=== PATIENT | male | born 1960 | race African-American/Black ===

== ENCOUNTER 2016-09-04 12:29 | Emergency (ER) | payer OTHER ==
[~2016-09-04] VITALS: Ht 167.6 cm; Wt 104.3 kg
--- NOTE | 2016-09-04 13:45 | ED CARDIAC/CP/PALPITATIONS ---
History of Present Illness General Chief Complaint: Chest Pain Stated Complaint: C/P Source: patient, family Exam Limitations: no limitations Vital Signs & Intake/Output Vital Signs & Intake/Output Vital Signs Date Time Temp Pulse Resp B/P Pulse O2 O2 Flow FiO2 Ox Delivery Rate 09/04 1432 96.8 74 18 150/73 96 Room Air 09/04 1241 98.5 68 20 181/83 97 Room Air Allergies Coded Allergies: No Known Allergies (09/04/16) Triage Note: TRIAGE: PT TO ER C/C RUQ ABD PAIN. ONSET 10 AM WHILE SHAVING. STATES PAIN STARTED IN HIS BACK AND WENT THROUGH TO RUQ ABD/CHEST AREA. STATES FELT A SPASM IN HIS BACK FOLLOWED BY SHARP PAIN TO RUQ ABD AND CHEST AREA. PAIN AT WORST WAS 8/10 AND CURRENTLY RATES 1/10. -N/V, -DIAPHORESIS. STATES FELT "A LITTLE MORE WINDED WHEN I WENT DOWN TO GET THE PAPER BEFORE COMING HERE" WHEN ASKED IF HE FELT SOB. HAD EKG DONE IN [place] PRIOR TO TRIAGE. Triage Nurses Notes Reviewed? yes HPI: 56-year-old male with hypertension and high cholesterol history. Complains of right sided mid back pain that started suddenly this morning while he was shaving around 10 AM. Pain is sharp and severe, 8 out of 10, sudden onset mid back right side that radiated to the right upper quadrant and right-sided lower chest region. It radiated straight through, from his back to the right upper quadrant region. He has no history of same. He denied any shortness of breath, nausea, vomiting, diaphoresis, neck pain, jaw pain, arm pain. He has no fever or flulike illness. He has no treatment so far. He states his pain lasted around 10 minutes and he had a hard time straightening up secondary to the pain. Now he describes symptoms as a 1 out of 10 in the same area. He has history of hypertension however he has been off his high blood pressure medication because of urticaria and his doctors trying to figure out what is causing his urticaria so his doctor has taken him off all medication. Past History Travel History Traveled to [place] past 21 day No Medical History Any Pertinent Medical History? see below for history Neurological: NONE EENT: NONE Cardiovascular: hypertension, hyperlipidemia Respiratory: NONE Gastrointestinal: NONE Hepatic: NONE Renal: NONE Musculoskeletal: NONE Psychiatric: NONE Endocrine: NONE Blood Disorders: NONE Cancer(s): NONE [employer]AL CUTTING MACHINE OPERATOR/Reproductive: NONE Other Medical Hx: urticaria Surgical History Surgical History: none Psychosocial History What is your primary language Albanian Tobacco Use: Quit >30 days ago (smoked in high school) ETOH Use: occasional use Illicit Drug Use: denies illicit drug use Family History Hx Contributory? No (no cad, pe/dvt) Review of Systems Review of Systems Constitutional: Reports: see HPI. EENTM: Reports: no symptoms. Respiratory: Reports: no symptoms. Cardiovascular: Reports: see HPI. GI: Reports: see HPI. Genitourinary: Reports: no symptoms. Musculoskeletal: Reports: no symptoms. Skin: Reports: no symptoms. Neurological/Psychological: Reports: no symptoms. Hematologic/Endocrine: Reports: no symptoms. Immunologic/Allergic: Reports: no symptoms. All Other Systems: Reviewed and Negative Physical Exam Physical Exam Cardiovascular: regular rate/rhythm Comments: Well-developed well-nourished person in no acute distress HEENT: Normal EENT exam, extraocular motion intact, no nystagmus. Pupils equally round and reactive to light. Nose is atraumatic. External auditory canal and Tympanic membranes clear. Pharynx normal. No swelling or edema. Neck: Supple, no lymphadenopathy, normal range of motion without pain or tenderness Back: Nontender, no CVA tenderness. Full range of motion Cardiovascular: Regular rate and rhythms no murmurs, normal JVP Respiratory: Chest nontender. No respiratory distress. Breath sounds clear to auscultation bilaterally Abdomen: Soft, nontender nondistended, no appreciable organomegaly. Normal bowel sounds. No ascites Extremity: No edema, no calf tenderness to palpation, normal and equal pulses. Neuro: Alert oriented x3, motor sensory normal, cranial nerves II through XII grossly intact. Skin: No appreciable rash on exposed skin, skin is warm and dry. Psych: Mood and affect is normal, memory and judgment is normal. Core Measures ACS in differential dx? Yes Severe Sepsis Present: No Septic Shock Present: No Progress Differential Diagnosis: AMI, aortic dissection, atrial fibrillation, cholecystitis, CHF/pulm edema, costochondritis, hyperkalemia, hypovolemia, hyperthyroid, hyperventilation, intracranial hemorrhage, musculoskeletal pain, myocarditis, pancreatitis, pericarditis, pneumonia, pneumothorax, PSVT, pulmonary embolism, PUD/GERD, PVCs/PACs, respiratory failure, rib fracture, sepsis, unstable angina, V-fib/V-Tach, WPW syndrome Plan of Care: Orders Procedure Date/time Status TROPONIN LEVEL 09/04 1330 Complete LIPASE 09/04 1330 Complete COMPREHENSIVE METABOLIC PANEL 09/04 1330 Complete CBC WITHOUT DIFFERENTIAL 09/04 1330 Complete AMYLASE 09/04 1330 Complete EKG 09/04 1231 Active Current Medications Sig/Cole Start time Last Medication Dose Stop Time Status Admin Aspirin 325 MG ONCE ONE 09/04 1415 CAN (Aspirin) 09/04 1416 Laboratory Tests 09/04/16 1343: Anion Gap 12, Estimated GFR > 60, BUN/Creatinine Ratio 12.0, Glucose 124 H, Calcium 10.0, Total Bilirubin 0.5, AST 27, ALT 48, Alkaline Phosphatase 66, Troponin I < 0.01, Total Protein 7.1, Albumin 4.1, Globulin 3.0, Albumin/ Globulin Ratio 1.4, Amylase 71, Lipase 66, CBC w Diff NO MAN DIFF REQ, RBC 6.54 H, MCV 74.2 L, MCH 24.0 L, RDW 15.7 H, MPV 8.0, Gran % 57.1, Lymphocytes % 34.2, Monocytes % 4.4, Eosinophils % 3.7, Basophils % 0.6, Absolute Granulocytes 2.6, Absolute Lymphocytes 1.6, Absolute Monocytes 0.2, Absolute Eosinophils 0.2, Absolute Basophils 0, PUBS MCHC 32.3 L Diagnostic Imaging: Viewed by Me: Radiology Read. Discussed w/RAD: Radiology Read. CXR Impression: no acute abnormality, no infiltrates, normal size heart, normal mediastinum Initial ED EKG: NSR, rate (70), nonspecific ST T wave chg (inf) Prior EKG: unchanged (2007) Rhythm Strip: normal sinus rhythm Comments: Patient's symptoms are not consistent with acute coronary syndrome, he started as mid back pain that radiated to the right upper quadrant area and lasted about 10 minutes with the sudden onset which inhibited patient from moving, appears as though it is more of a muscle spasm type medication. He denied any nausea or shortness of breath or any further chest pain,he has no cardiac history or family risk factors. Likely this is muscular spasm however he should return with any concerns, he is asymptomatic on reevaluation, after any concerning symptoms in the next few days he should follow-up with his primary care doctor. He understands and agrees with plan. Departure Departure Disposition: HOME OR SELF CARE Condition: Stable Clinical Impression Primary Impression: Chest pain Qualifiers: Chest pain type: unspecified Qualified Code: R07.9 - Chest pain, unspecified Secondary Impressions: Hypertension Qualifiers: Hypertension type: essential hypertension Qualified Code: I10 - Essential (primary) hypertension Referrals: SIMONA BECKMAN,DA Fernandes (PCP/Family) Additional Instructions: Return with worsening chest pain, shortness of breath, jaw pain, arm pain, dizziness or if you feel like you're going to pass out If symptoms continue with her any further concerns, follow-up with her primary care doctor this week. Departure Forms: Customer Survey General Discharge Information Critical Care Note Critical Care Note Critical Care Time: non-applicable
[2016-09-04 14:00] LABS: ABSOLUTE BASOPHIL COUNT 0 /CUMM (0.0-0.2); ABSOLUTE EOSINOPHIL COUNT 0.2 /CUMM (0.0-0.7); ABSOLUTE GRANULOCYTE CT 2.6 /CUMM (1.4-6.5); ABSOLUTE LYMPH COUNT 1.6 /CUMM (1.2-3.4); ABSOLUTE MONOCYTE COUNT 0.2 /CUMM (0.10-0.60); BASOPHIL % 0.6 % (0.0-2.0); EOSINOPHIL % 3.7 % (0-5); GRANULOCYTE % 57.1 % (42.2-75.2); HEMATOCRIT 48.5 % (42-52); MEAN CORPUSCULAR HGB CONC 32.3 G/DL (33.0-37.0); MEAN CORPUSCULAR VOLUME 74.2 FL (80.0-94.0); PLATELET COUNT 218 /CUMM (130-400); RBC DISTRIBUTION WIDTH 15.7 % (11.5-14.5); RED BLOOD CELL CT 6.54 /CUMM (4.70-6.10); WHITE BLOOD CELL COUNT 4.6 /CUMM (4.8-10.8)
--- NOTE | 2016-09-04 14:28 | RADIOLOGY REPORT ---
EXAMINATION: XR CHEST CLINICAL INFORMATION: Chest pain COMPARISON: None. TECHNIQUE: PA and lateral views of the chest were obtained. FINDINGS: Lungs are well expanded and clear. The trachea is midline in position. Cardiac silhouette is normal in size. The mediastinal and hilar contours are normal. There is no pneumothorax or pleural effusion. The visualized bones of the thorax are normal. IMPRESSION: No acute cardiopulmonary disease.
[2016-09-04 14:32] VITALS: BP 150/73
== END 2016-09-04 14:56 ==
LOC: ERH 12:29
PROVIDERS: Physician Assistant Surgical
DX: R07.9 Chest pain, unspecified (principal); I10 Essential (primary) hypertension
CPT/HCPCS: 93005; 93010